=== PATIENT | male | born 1975 | race Two or more races ===

== ENCOUNTER 2016-08-11 03:06 | Emergency (ER) | payer SELFPAY ==
[~2016-08-11] VITALS: Ht 180.3 cm; Wt 106.6 kg
[2016-08-11] MEDS ORDERED: HYDR25TA PO (03:49)
--- NOTE | 2016-08-11 03:49 | PHYS DOC ---
Past Medical History Past Medical History: Hypertension Past Surgical History: Other Additional Past Surgical Histo: hernia Alcohol Use: Occasionally Drug Use: Cocaine (x1) Adult General Chief Complaint Chief Complaint: DEPRESSION HPI HPI Patient is a 40 year old male who presents with family for anxiety, stress, insomnia, and seeing his for the past few days. His is a visual hallucination according to the patient and his family. He is currently going through a divorce. He notes drinking more than usual and trying cocaine recently. His family is concerned about his health and brought him here. He denies headache, chest pain, palpitations, dyspnea, cough, fever or chills, nausea or vomiting, abdominal pain, auditory hallucination, suicidal ideation, homicidal ideation. Family has not otherwise noticed abnormal behavior. Review of Systems Review of Systems Constitutional: Denies fever or chills [] Eyes: Denies change in visual acuity, redness, or eye pain [] HENT: Denies nasal congestion or sore throat [] Respiratory: Denies cough or shortness of breath [] Cardiovascular: No additional information not addressed in HPI [] GI: Denies abdominal pain, nausea, vomiting, bloody stools or diarrhea [] : Denies dysuria or hematuria [] Musculoskeletal: Denies back pain or joint pain [] Integument: Denies rash or skin lesions [] Neurologic: Denies headache, focal weakness or sensory changes [] Endocrine: Denies polyuria or polydipsia [] Current Medications Current Medications Current Medications Medications (Trade) Dose Ordered Sig/[facility] Start Time Stop Time Status Last Admin Dose Admin Hydroxyzine Pamoate (Vistaril) 25 mg 1X ONCE 08/11/16 04:00 08/11/16 04:01 DC 08/11/16 04:01 25 MG Allergies Allergies Allergies Coded Allergies Type Severity Reaction Last Updated Verified No Known Drug Allergies 08/11/16 No Physical Exam Physical Exam Constitutional: Well developed, well nourished, no acute distress, non-toxic appearance. [] HENT: Normocephalic, atraumatic, bilateral external ears normal, oropharynx moist, nose normal. [] Eyes: PERRLA, EOMI. [] Neck: Normal range of motion, supple. [] Cardiovascular:Heart rate regular rhythm [] Lungs & Thorax: Bilateral breath sounds clear to auscultation [] Abdomen: Bowel sounds normal, soft, no tenderness. [] Skin: Warm, dry, no erythema, no rash. [] Back: Normal range of motion. [] Extremities: No tenderness, ROM intact, no edema. [] Neurologic: Alert and oriented X 3, normal motor function, normal sensory function, no focal deficits noted, cranial nerves II through XII intact. [] Psychologic: Affect normal, judgement normal, mood normal. [] Current Patient Data Vital Signs Vital Signs Date Time Temp Pulse Resp B/P Pulse Ox O2 Delivery O2 Flow Rate FiO2 08/11/16 03:38 98.4 75 16 148/99 93 Room Air 98.4 Course & Med Decision Making Course & Med Decision Making Discussed importance of psychiatric therapy during this stressful time period. Offered Vistaril to help with symptoms of anxiety and insomnia. Alcohol and substance cessation discussed. Strict return precautions given. He and family understand and agree with plan. Dragon Disclaimer Dragon Disclaimer This electronic medical record was generated, in whole or in part, using a voice recognition dictation system. Departure Departure Impression: Primary Impression: Situational anxiety Additional Impression: Insomnia Disposition: 01 HOME, SELF-CARE Condition: STABLE Referrals: NO PCP (PCP) Patient Instructions: Anxiety and Panic Attacks, [id number], Insomnia-Brief Additional Instructions: Take hydroxyzine as needed for anxiety or difficulty sleeping. Follow up with your primary care doctor and psychiatrist for therapy. Return for any concerns. Scripts Hydroxyzine Hcl 25 Mg Tablet1 Tab PO TID PRN ANXIETY / AGITATION #30 TAB Prov:Rigo HERNANDEZ MD 08/11/16 Problem Qualifiers Additional Impression: Insomnia Insomnia type: unspecified Qualified Code: G47.00 - Insomnia, unspecified Rigo HERNANDEZ MD Aug 11, 2016 03:49
[2016-08-11 04:00] VITALS: BP 141/97
[2016-08-11] MEDS ORDERED: hydrOXYzine PAMOATE 25 MG CAPSULE PO ONE (04:00)
== END 2016-08-11 04:10 | disposition home or self-care (01) ==
LOC: ER 03:06
DX: F41.8 Other specified anxiety disorders (principal); G47.00 Insomnia, unspecified; F32.9 Major depressive disorder, single episode, unspecified; F14.10 Cocaine abuse, uncomplicated; I10 Essential (primary) hypertension
CPT/HCPCS: 99283; Q0177; 99282